=== PATIENT | female | born 1970 ===

== ENCOUNTER 2023-02-05 11:45 | Inpatient (IN) | payer OTHER ==
[~2023-02-05] VITALS: Ht 149.9 cm; Wt 72.6 kg
[2023-02-09] MEDS ORDERED: LEVO-T200 MCG PO (08:40)
[2023-02-09] MEDS ORDERED: LIPITOR20 MG (08:41)
[2023-02-10] MEDS ORDERED: PROTONIX40 MG PO (15:16)
[2023-02-10] MEDS ORDERED: ACETAMINOPHEN-1 EAC2 PO (15:16)
[2023-02-10] MEDS ORDERED: CEFADROXIL500 MG PO (15:16)
== END 2023-02-10 16:37 | disposition home or self-care (01) | DRG 337 ==
LOC: SURH 02-09 06:55 → O/R 02-09 06:55 → SURG 02-09 07:00 → SURH 02-09 11:28 → SURG 02-09 11:45 → SURH 02-10 16:37
PROVIDERS: ADMIT Surgery; ATTEND Surgery
PROC: 0DTJ0ZZ Resection of Appendix, Open Approach (ICD-10-PCS; 2023-02-09)
PROC: 0WQF0ZZ Repair Abdominal Wall, Open Approach (ICD-10-PCS; 2023-02-09)
PROC: 0DNW0ZZ Release Peritoneum, Open Approach (ICD-10-PCS; principal; 2023-02-09 07:00)
DX: K36 Other appendicitis (principal); K42.9 Umbilical hernia without obstruction or gangrene; K66.0 Peritoneal adhesions (postprocedural) (postinfection)